=== PATIENT | female | born 1995 | race Hispanic/Latino ===

== ENCOUNTER 2017-09-21 07:51 | Emergency (ER) | payer OTHER ==
[2017-09-21 08:00] VITALS: BMI 25.7
[2017-09-21 08:02] VITALS: O2SAT 99
--- NOTE | 2017-09-21 08:48 | ED PDOC ---
Lower Extremity Pain/Injury Time Seen by Provider: 09/21/17 08:40 Chief Complaint (Nursing): Lower Extremity Problem/Injury Chief Complaint (Provider): Ankle pain History Per: Patient History/Exam Limitations: no limitations Onset/Duration Of Symptoms: Days (4) Current Symptoms Are (Timing): Still Present Additional Complaint(s): Pt. fell sideways from a slide and twisted her right ankle. Has pain to it but able to put weight. No numbness, tingles, weakness, chest pain. No back pain, hip, knee, calf pain. Pt. got skin abrasions to the R shoulder and R ankle for which she is putting on neosporin. She is here for the ankle only. Past Medical History Reviewed: Nursing Documentation, Vital Signs Vital Signs: Last Vital Signs Temp 98.4 F 09/21/17 08:00 Pulse 92 H 09/21/17 08:00 Resp 20 09/21/17 08:00 BP 120/74 09/21/17 08:00 Pulse Ox 99 09/21/17 08:00 - Medical History PMH: No Chronic Diseases - Surgical History Surgical History: No Surg Hx - Family History Family History: States: Unknown Family Hx - Living Arrangements Living Arrangements: With Family - Home Medications Home Medications: Ambulatory Orders Medication Instructions Recorded Ibuprofen [Motrin] 600 mg PO TID 7 Days tab 09/21/17 - Allergies Allergies/Adverse Reactions: Allergies Allergy/AdvReac Type Severity Reaction Status Date / Time No Known Allergies Allergy Verified 09/21/17 08:38 Review of Systems Constitutional: Negative for: Weakness Cardiovascular: Negative for: Chest Pain Respiratory: Negative for: Shortness of Breath Musculoskeletal: Positive for: Other (ankle pain). Negative for: Neck Pain, Shoulder Pain, Arm Pain Physical Exam - Reviewed Nursing Documentation Reviewed: Yes Vital Signs Reviewed: Yes - Physical Exam Appears: Positive for: Non-toxic, No Acute Distress Skin: Positive for: Rash (L shoulder and and elbow with 5cm diameter abrasion, mild tender; free of debris) Neck: Positive for: Normal, Painless ROM Cardiovascular/Chest: Positive for: Regular Rate, Rhythm Respiratory: Positive for: CNT, Normal Breath Sounds Pulses-Dorsalis Pedis (R): 2+ Pulses-Post. Tibialis (R): 2+ Back: Positive for: Normal Inspection. Negative for: L CVA Tenderness, R CVA Tenderness Extremity: Positive for: Other (R lateral malleolus tender with swelling; has full ROM ankle with pain; no echymosis). Negative for: Calf Tenderness Neurologic/Psych: Positive for: Alert - ECG O2 Sat by Pulse Oximetry: 99 Procedures - Splinting Location: R ankle Pre-Made Type: aircast Pre-Proc Neuro Vasc Exam: normal Post-Proc Neuro Vasc Exam: normal Progress: Tolerated well. No weight till fu with podiatry. Disposition - Clinical Impression Clinical Impression: Ankle pain - Patient ED Disposition Is Patient to be Admitted: No Counseled Patient/Family Regarding: Studies Performed, Diagnosis, Need For Followup, Rx Given - Disposition Referrals: Podiatry Clinic [Outside] - 09/22/17 [facility] [Outside] - 09/22/17 Disposition: Routine/Home Disposition Time: 11:36 Condition: STABLE Additional Instructions: Return if not better in 3 days. See the composition stone applicator in 3 days without fail. No weight on leg till you see the composition stone applicator. Prescriptions: Ibuprofen [Motrin] 600 mg PO TID 7 Days tab Instructions: Ankle Sprain Forms: [facility] (Turkish), [facility] School/Work Excuse
[2017-09-21 11:49] VITALS: BP 119/68; PULSE 64; RESP 14; TEMP 98.3
--- NOTE | 2017-09-21 13:35 | RAD ---
Date of service: 09/21/2017 PROCEDURE: Right Ankle Radiographs. HISTORY: pain COMPARISON: None FINDINGS: BONES: Normal. No fracture. JOINTS: Normal. No osteoarthritis. Ankle mortise maintained. Talar dome intact SOFT TISSUES: Lateral soft tissue swelling without distal fibular or talar abnormality. OTHER FINDINGS: None. IMPRESSION: Soft tissue swelling without acute articular or osseous abnormality. Concordant results with the preliminary interpretation rendered by the emergency department physician procedure.
== END 2017-09-21 11:53 | disposition home or self-care (01) ==
LOC: H.ER 07:51
DX: M25.571 Pain in right ankle and joints of right foot (principal)